=== PATIENT | male | born 1935 | race Caucasian/White ===

== ENCOUNTER 2020-10-26 19:29 | Emergency (ER) | payer MEDICARE ==
[~2020-10-26] VITALS: Ht 177.8 cm; Wt 87.1 kg
[~2020-10-26 19:29] MED LIST: ACETAMINOPHEN325 M1 PO; ALEVE220 MG PO; ZANTAC 150MG T150 M1 PO
[2020-10-26] MEDS ORDERED: FLOMAX0.4 MG PO (19:41)
[2020-10-26 20:03] VITALS: BP 150/76
== END 2020-10-26 20:06 | disposition home or self-care (01) ==
LOC: M.ERS 19:29
DX: T16.2XXA Foreign body in left ear, initial encounter (principal); Z88.6 Allergy status to analgesic agent; Z79.899 Other long term (current) drug therapy; Z90.49 Acquired absence of other specified parts of digestive tract; X58.XXXA Exposure to other specified factors, initial encounter; Y93.89 Activity, other specified; Y92.89 Other specified places as the place of occurrence of the external cause; Y99.9 Unspecified external cause status